=== PATIENT | female | born 1950 | race Caucasian/White ===

== ENCOUNTER 2016-10-27 12:36 | Outpatient (CLI) | payer MEDICARE, OTHER | END 2016-10-27 12:37 | disposition home or self-care (01) | DX: R07.81 Pleurodynia (principal) ==

== ENCOUNTER 2017-02-10 09:00 | Outpatient (CLI) | payer MEDICARE, OTHER ==
--- NOTE | 2017-02-10 11:16 | DEXA Report ---
DEXA SCAN: 02/10/2017 CLINICAL HISTORY: Bone disorder. TECHNIQUE: Dual energy x-ray absorptiometry (DXA) was performed on a [employer] system. Regions measured are the AP spine, femoral neck, and, if needed, forearm. COMPARISON: None. In accordance with the International Society for Clinical Densitometry (ISCD) guidelines, data from previous exams may be reanalyzed using current recommendations and techniques. This is done to allow a more accurate basis for comparison with the current study. FINDINGS: The data for the lumbar spine is as follows: REGION BMD (g/cm/cm) T-SCORE Z-SCORE L1 1.078 -0.4 0.0 L2 1.213 0.1 0.5 L3 1.035 -1.4 -0.9 L4 0.977 -1.9 -1.4 TOTAL 1.073 -0.9 -0.5 NOTE: All evaluable vertebrae are used for classification. The data for the hip is as follows: REGION BMD (g/cm/cm) T-SCORE Z-SCORE Neck 1.052 0.1 0.9 TOTAL 1.032 0.2 0.6 NOTE: The femoral neck or total proximal femur, whichever is lowest, is used for classification. IMPRESSION: THE WHO CLASSIFICATION BASED ON THE INTERNATIONAL REFERENCE STANDARD IS NORMAL. THE FRACTURE RISK IS NOT INCREASED. RECOMMENDATION: Patients with diagnosis of osteoporosis or osteopenia should have regular bone mineral density assessment. For those eligible for Medicare, routine testing is allowed once every 2 years. Testing frequency can be increased for patients who have rapidly progressing disease or for those who are receiving medical therapy to restore bone mass. COMMENT: World Health Organization (WHO) definitions for osteoporosis and osteopenia: NORMAL BMD: T-score at -1.0 or higher, fracture risk is low. OSTEOPENIA BMD: T-score between -1.0 and -2.5, fracture risk is increased. OSTEOPOROSIS BMD: T-score at -2.5 or lower, fracture risk high. National Osteoporosis Foundation recommends: 1. Obtain adequate dietary calcium (at least 1200 mg per day) and vitamin D (400 -800 international units per day). 2. Participate, as appropriate, in regular weightbearing and muscle- strengthening exercise. 3. Avoid tobacco use and reduce alcohol and caffeine intake. 4. For more detailed information see the website at www.NOF.org. MTDD
== END 2017-02-10 09:01 | disposition home or self-care (01) ==
LOC: DI 09:00
PROVIDERS: ATTEND Physician Assistant Medical
DX: M89.9 Disorder of bone, unspecified (principal)
CPT/HCPCS: 77080

== ENCOUNTER 2017-02-21 07:33 | Outpatient (CLI) | payer MEDICARE, OTHER ==
[2017-02-21 12:41] LABS: BASOPHILS % (AUTO) 0.6 %; EOSINOPHILS # (AUTO) 0.1 10^3/uL (0.0-0.7); EOSINOPHILS % (AUTO) 2.5 %; HCT - HEMATOCRIT 38.1 % (37.0-47.0); HGB - HEMOGLOBIN 12.9 g/dL (12.0-16.0); LYMPHOCYTES # (AUTO) 1.4 10^3/uL (1.5-3.5); LYMPHOCYTES % (AUTO) 27.1 %; MEAN CORPUSCULAR HEMOGLOBIN 30.1 pg (27.0-31.0); MEAN CORPUSCULAR VOLUME 88.5 fL (81.0-99.0); MEAN PLATELET VOLUME 8.8 fL (7.9-10.8); MONOCYTES # (AUTO) 0.4 10^3/uL (0.0-1.0); NEUTROPHILS # (AUTO) 3.2 10^3/uL (1.5-6.6); NEUTROPHILS % (AUTO) 61.8 %; RED CELL DISTRIBUTION WIDTH 14.7 % (12.0-15.0); UNCORRECTED WHITE BLOOD COUNT 5.1 x10^3/uL; WHITE BLOOD COUNT 5.1 x10^3/uL (4.8-10.8)
[2017-02-21 13:14] LABS: ALBUMIN/GLOBULIN RATIO 1.4 (1.0-2.2); BILIRUBIN,TOTAL 0.5 mg/dL (0.2-1.0); BUN - BLOOD UREA NITROGEN 28 mg/dL (6-20); CALCIUM 9.4 mg/dL (8.5-10.3); CARBON DIOXIDE - CO2 28 mmol/L (21-32); CHLORIDE 104 mmol/L (101-111); CHOL/HDL RATIO 2.4 (<4.4); CHOLESTEROL 168 mg/dL; GFR - MDRD 55 (>89); GLUCOSE 98 mg/dL (70-100); HDL CHOLESTEROL 71 mg/dL; LDL/HDL RATIO 0.9 (<4.4); POTASSIUM 4.3 mmol/L (3.5-5.0); SODIUM 141 mmol/L (135-145); TOTAL PROTEIN 7.6 g/dL (6.7-8.2); TRIGLYCERIDES 149 mg/dL; VLDL CHOLESTEROL 30 mg/dL
== END 2017-02-21 07:34 | disposition home or self-care (01) ==
LOC: LAB.WCP 07:33
PROVIDERS: ATTEND Physician Assistant Medical
DX: I10 Essential (primary) hypertension (principal)
CPT/HCPCS: 36415; 80053; 80061; 84443; 85025

== ENCOUNTER 2017-04-07 11:25 | Outpatient (CLI) | payer MEDICARE, OTHER ==
--- NOTE | 2017-04-10 16:51 | Mammography Report ---
DIGITAL SCREENING MAMMOGRAM: 04/07/2017 CLINICAL INDICATION: A 66-year-old with history of late childbearing, history of benign left breast b iopsy, for screening. COMPARISON: 02/2016, 02/2015, 01/2014, 01/2013, 12/2011, 10/2010, 10/2009, 08/2008, 08/2007. TECHNIQUE: Routine CC and MLO projections were obtained of the breasts. FINDINGS: The breasts demonstrate scattered fibroglandular densities bilaterally. Postbiopsy changes in the left breast are stable. Coarse and punctate, typically benign calcifications are present. Int ramammary lymph nodes are stable. No suspicious masses, clustered microcalcifications, or regions of architectural distortion are identified. IMPRESSION: BENIGN FINDINGS. RECOMMENDATION: ROUTINE ANNUAL SCREENING UNLESS OTHERWISE CLINICALLY INDICATED. BIRADS CATEGORY 2-BENIGN FINDINGS. STANDARD QUALIFYING STATEMENTS 1. This examination was reviewed with the aid of Computer-Aided Detection (CAD). 2. A negative or benign imaging report should not delay biopsy if clinically suspicious findings are present. Consider surgical consultation if warranted. More than 5% of cancers are not identified by i maging. 3. Dense breasts may obscure an underlying neoplasm. JOB #: [id number] EXT JOB #:[id number]
== END 2017-04-07 11:26 | disposition home or self-care (01) ==
LOC: DI.N 11:25
PROVIDERS: ATTEND Physician Assistant Medical
DX: Z12.31 Encounter for screening mammogram for malignant neoplasm of breast (principal)
CPT/HCPCS: 77067

== ENCOUNTER 2017-08-11 13:00 | Outpatient (CLI) | payer MEDICARE, OTHER | END 2017-08-11 13:01 | disposition home or self-care (01) | LOC: LAB.WCP 13:00 | PROVIDERS: ATTEND Family Medicine | DX: R35.0 Frequency of micturition (principal) | CPT/HCPCS: 87086 ==

== ENCOUNTER 2017-09-29 10:05 | Outpatient (CLI) | payer MEDICARE, OTHER ==
--- NOTE | 2017-09-29 15:32 | XRAY Report ---
DATE OF SERVICE: 09/29/2017 TWO VIEW RIGHT RIBS: 09/29/2017 CLINICAL INDICATION: Pain. FINDINGS: Oblique views of the right ribs were obtained, with a marker at the site of maximal tenderness. There is no evidence of a displaced rib fracture. No gross pneumothorax is seen. IMPRESSION: NO EVIDENCE OF A DISPLACED RIB FRACTURE. TD: 09/29/2017 16:30
== END 2017-09-29 10:06 | disposition home or self-care (01) ==
LOC: DI 10:05
PROVIDERS: ATTEND Physician Assistant Medical
DX: R07.81 Pleurodynia (principal)

== ENCOUNTER 2017-10-05 12:22 | Outpatient (CLI) | payer MEDICARE, OTHER ==
--- NOTE | 2017-10-05 18:59 | CT Report ---
DATE OF SERVICE: 10/05/2017 CT CHEST WITHOUT CONTRAST: 10/05/2017 CLINICAL INDICATION: Right rib pain. COMPARISON: 10/27/[address] images of the chest were obtained without contrast. In accordance with CT protocol optimization, one or more of the following dose reduction techniques were utilized for this exam: Automated exposure control, adjustment of mA and/or KV based on patient size, or use of iterative reconstructive technique. The heart and great vessels demonstrate atherosclerotic calcifications. No hilar or mediastinal lymphadenopathy is appreciated. The lungs are clear. Postoperative changes are seen at the right lung base and right posterolateral pleural surface, with a [place]-Everardo mesh in place. There has been partial resection of the 9th rib, stable. The diastasis between the 8th and 9th ribs appears stable, with stable lateral protrusion of the liver through the diastasis. No new rib fracture is identified. Limited evaluation of upper abdominal structures demonstrates normal adrenal glands. IMPRESSION: Stable postoperative changes in the right chest. No evidence of a new rib fracture. TD: 10/05/2017 19:58
== END 2017-10-05 12:23 | disposition home or self-care (01) ==
LOC: DI 12:22
PROVIDERS: ATTEND Physician Assistant Medical
DX: R07.81 Pleurodynia (principal)
CPT/HCPCS: 71250

== ENCOUNTER 2018-03-06 07:16 | Outpatient (CLI) | payer MEDICARE, OTHER ==
[2018-03-06 12:25] LABS: ALBUMIN 4.2 g/dL (3.2-5.5); ALBUMIN/GLOBULIN RATIO 1.3 (1.0-2.2); ALKALINE PHOSPHATASE 50 IU/L (42-121); ALT ALANINE AMINOTRANSFERASE 16 IU/L (10-60); AST ASPARTATE AMINOTRANSFERASE 22 IU/L (10-42); BILIRUBIN,TOTAL 0.8 mg/dL (0.2-1.0); BUN - BLOOD UREA NITROGEN 44 mg/dL (6-20); CALCIUM 9.7 mg/dL (8.5-10.3); CARBON DIOXIDE - CO2 29 mmol/L (21-32); CHLORIDE 101 mmol/L (101-111); CHOL/HDL RATIO 2.7 (<4.4); CHOLESTEROL 151 mg/dL; GFR - MDRD 55 (>89); GLUCOSE 86 mg/dL (70-100); HDL CHOLESTEROL 56 mg/dL; LDL CHOLESTEROL,CALCULATED 82 mg/dL; LDL/HDL RATIO 1.5 (<4.4); SODIUM 136 mmol/L (135-145); TOTAL PROTEIN 7.5 g/dL (6.7-8.2); VLDL CHOLESTEROL 13 mg/dL
[2018-03-06 12:34] LABS: BASOPHILS % (AUTO) 0.5 %; EOSINOPHILS # (AUTO) 0.1 10^3/uL (0.0-0.7); HGB - HEMOGLOBIN 13.3 g/dL (12.0-16.0); LYMPHOCYTES # (AUTO) 1.5 10^3/uL (1.5-3.5); LYMPHOCYTES % (AUTO) 25.2 %; MEAN CORPUSCULAR HEMOGLOBIN 31.1 pg (27.0-31.0); MEAN CORPUSCULAR HGB CONC 33.8 g/dL (32.0-36.0); MEAN CORPUSCULAR VOLUME 92.1 fL (81.0-99.0); MONOCYTES # (AUTO) 0.5 10^3/uL (0.0-1.0); MONOCYTES % (AUTO) 7.9 %; NEUTROPHILS # (AUTO) 3.8 10^3/uL (1.5-6.6); NEUTROPHILS % (AUTO) 64.4 %; PLT - PLATELET COUNT 207 10^3/uL (130-450); RED BLOOD COUNT 4.28 10^6/uL (4.20-5.40); RED CELL DISTRIBUTION WIDTH 14.1 % (12.0-15.0); THYROID STIMULATING HORMONE < 0.08 uIU/mL (0.34-5.60); WHITE BLOOD COUNT 5.9 x10^3/uL (4.8-10.8)
== END 2018-03-06 07:17 | disposition home or self-care (01) ==
LOC: LAB.WCP 07:16
PROVIDERS: ATTEND Physician Assistant Medical
DX: E78.5 Hyperlipidemia, unspecified (principal); E55.9 Vitamin D deficiency, unspecified; R53.83 Other fatigue; E03.9 Hypothyroidism, unspecified; J30.9 Allergic rhinitis, unspecified
CPT/HCPCS: 36415; 80053; 80061; 82306; 82607; 83721; 84443; 85025

== ENCOUNTER 2018-04-03 08:05 | Outpatient (CLI) | payer MEDICARE, OTHER ==
[2018-04-03 13:50] LABS: THYROID STIMULATING HORMONE < 0.08 uIU/mL (0.34-5.60)
[2018-04-03 14:45] LABS: FREE T4 (FREE THYROXINE) 1.68 ng/dL (0.58-1.64)
== END 2018-04-03 08:06 | disposition home or self-care (01) ==
LOC: LAB.WCP 08:05
PROVIDERS: ATTEND Physician Assistant Medical
DX: E03.9 Hypothyroidism, unspecified (principal)
CPT/HCPCS: 36415; 84439; 84443

== ENCOUNTER 2018-04-14 07:35 | Outpatient (CLI) | payer MEDICARE, OTHER ==
--- NOTE | 2018-04-15 15:16 | CT Report ---
Procedure Date: 04/14/2018 Accession Number: [id number] / [id number] Procedure: CT - Chest W/O CPT Code: FULL RESULT: EXAM: CT CHEST EXAM DATE: 04/14/2018 07:50 AM. CLINICAL HISTORY: RIB PAIN, RIGHT SIDED. COMPARISONS: CHEST W/O 10/05/2017 12:34 AM CHEST W/O 10/27/2016 12:57 AM. TECHNIQUE: Routine helical CT imaging was performed through the chest. IV contrast: None. Reconstructions: Coronal and sagittal. In accordance with CT protocol optimization, one or more of the following dose reduction techniques were utilized for this exam: automated exposure control, adjustment of mA and/or KV based on patient size, or use of iterative reconstructive technique. FINDINGS: Lungs/Pleura: There is stable scarring within the right lung base. Patient has undergone thoracotomy with pleural repair. There is a stable 0.4 cm pulmonary nodule within the left lower lobe (image 37 series 4). Stable 0.4 cm pulmonary nodule within the left lower lobe (image 39). No new or suspicious nodules are seen. Mediastinum: There is no cardiomegaly. There is calcification of the aortic valve. No enlarged axillary, supraclavicular, mediastinal, or hilar lymph nodes. Bones: The posterolateral ninth rib is absent. Sclerosis of the lateral right eighth rib and posterior right ninth rib likely corresponds to remote fractures. No acute bony abnormalities are seen. Visualized Abdomen: Unremarkable. Other: None. IMPRESSION: 1. No evidence of acute rib fracture. There are remote fractures of the right lateral eighth and right posterior ninth ribs. Patient has undergone partial right ninth rib resection with pleural mesh placement. 2. Stable scarring within the right lung base. 3. Stable pair of 0.4 cm pulmonary nodules within the left lower lobe. 4. No acute pulmonary process. 5. Mild cardiomegaly. There are calcifications of the aortic valve. RADIA
== END 2018-04-14 07:36 | disposition home or self-care (01) ==
LOC: DI 07:35
PROVIDERS: ATTEND Physician Assistant Medical
DX: R07.81 Pleurodynia (principal); R91.8 Other nonspecific abnormal finding of lung field; I51.7 Cardiomegaly; I70.0 Atherosclerosis of aorta
CPT/HCPCS: 71250

== ENCOUNTER 2018-04-19 09:11 | Outpatient (CLI) | payer MEDICARE, OTHER ==
--- NOTE | 2018-04-20 11:32 | Mammography Report ---
Procedure Date: 04/19/2018 Accession Number: [id number] / [id number] Procedure: MGN - Screening Mammo Dig Bilat CPT Code: FULL RESULT: EXAM: Screening Mammo Dig Bilat DATE: 04/19/2018 9:31 AM CLINICAL HISTORY: 67-year-old female with history of late childbearing and left breast biopsy with benign pathology. TECHNIQUE: Bilateral CC and MLO views were obtained. COMPARISON: 04/07/2017, 03/10/2016, 02/17/2015, 02/13/2014. FINDINGS: The breasts demonstrate scattered fibroglandular densities bilaterally. A typically benign stable intramammary lymph node is seen in the left breast. Postbiopsy changes in the left breast are again seen. No suspicious masses, clustered microcalcifications, or regions of architectural distortion are identified. IMPRESSION: Benign findings RECOMMENDATION: Routine annual screening unless otherwise clinically indicated. BIRADS CATEGORY 2: Benign findings STANDARD QUALIFYING STATEMENTS: 1. This examination was reviewed with the aid of Computer-Aided Detection (CAD). 2. A negative or benign imaging report should not delay biopsy if clinically suspicious findings are present. Consider surgical consultation if warrented. More than 5% of cancers are not identified by imaging. 3. Dense breasts may obscure an underlying neoplasm.
== END 2018-04-19 09:12 | disposition home or self-care (01) ==
LOC: DI.N 09:11
PROVIDERS: ATTEND Physician Assistant Medical
DX: Z12.31 Encounter for screening mammogram for malignant neoplasm of breast (principal)
CPT/HCPCS: 77067

== ENCOUNTER 2018-05-04 08:00 | Outpatient (CLI) | payer MEDICARE, OTHER ==
[2018-05-04 19:07] LABS: THYROID STIMULATING HORMONE 0.14 uIU/mL (0.34-5.60)
[2018-05-04 19:45] LABS: FREE T4 (FREE THYROXINE) 1.17 ng/dL (0.58-1.64)
== END 2018-05-04 08:01 | disposition home or self-care (01) ==
LOC: LAB.WCP 08:00
PROVIDERS: ATTEND Physician Assistant Medical
DX: E03.9 Hypothyroidism, unspecified (principal)
CPT/HCPCS: 36415; 84439; 84443

== ENCOUNTER 2019-06-04 08:00 | Outpatient (CLI) | payer MEDICARE, OTHER | END 2019-06-04 08:01 | disposition home or self-care (01) | LOC: LAB.R 08:00 | PROVIDERS: ATTEND Physician Assistant Medical | DX: L02.91 Cutaneous abscess, unspecified (principal) | CPT/HCPCS: 87070; 87205 ==

== ENCOUNTER 2019-06-06 14:32 | Outpatient (CLI) | payer MEDICARE, OTHER ==
--- NOTE | 2019-06-07 09:10 | DEXA Report ---
Reason: POSTMENOPAUSAL Procedure Date: 06/06/2019 Accession Number: [id number] / [id number] Procedure: DEX - Dexa Spine and/or Hip CPT Code: FULL RESULT: EXAM: Dexa Spine and/or Hip DATE: 06/06/2019 3:07 PM CLINICAL HISTORY: POSTMENOPAUSAL. On thyroid medicine. History of Alendronate use. TECHNIQUE: Dual energy x-ray absorptiometry (DXA) was performed on a [employer] System. Regions measured are the AP Spine, femoral neck, and if needed forearm. COMPARISON: 02/10/2017 In accordance with the International Society for Clinical Densitometry (ISCD) guidelines, data from previous exams may be reanalyzed using current recommendations and techniques. This is done to allow a more accurate basis for comparison with the current study. FINDINGS: The data for the lumbar spine is as follows: BMD (g/cm/cm) T-SCORE Z-SCORE REGION L1 1.062 -0.6 -0.1 L2 1.138 -0.5 0.0 L3 1.082 -1.0 -0.5 L4 0.949 -2.1 -1.6 TOTAL 1.055 -1.0 -0.6 NOTE: All evaluable vertebrae are used for classification The data for the hip is as follows: BMD (g/cm/cm) T-SCORE Z-SCORE REGION Neck 0.977 -0.4 0.4 TOTAL 0.970 -0.3 0.2 NOTE: The femoral neck or total proximal femur, whichever is lowest, is used for classification. DXA RESULTS SUMMARY: Spine SCAN DATE AGE BMD CHANGE VS CHANGE VS PREVIOUS PREVIOUS % 6/06[birth year]2019 [age] 1.055 -0.018 -1.7 02[birth year]10[birth year]2017 [age] 1[age]073 * Denotes significant change at the 95% confidence level. Denotes dissimilar scan types or analysis methods. DXA RESULTS SUMMARY: Hip SCAN DATE AGE BMD CHANGE VS CHANGE VS PREVIOUS PREVIOUS % 6[birth year]06[birth year]2019 [age] 0.970 -0.062* -6.0* [birth year][age]10[birth year]2017 [age] 1.032 * Denotes significant change at the 95% confidence level. Denotes dissimilar scan types or analysis methods. IMPRESSION: THE WHO CLASSIFICATION BASED ON THE INTERNATIONAL REFERENCE STANDARD IS NORMAL. THE FRACTURE RISK IS NOT INCREASED. THERE HAS BEEN A STATISTICALLY SIGNIFICANT 6% DECREASE IN LEFT HIP TOTAL BONE MINERAL DENSITY SINCE 02/10/2017. RECOMMENDATION: Patients with diagnosis of osteoporosis or osteopenia should have regular bone mineral density assessment. For those eligible for Medicare, routine testing is allowed once every 2 years. Testing frequency can be increased for patients who have rapidly progressing disease or for those who are receiving medical therapy to restore bone mass. COMMENT: World Health Organization (WHO) definitions for osteoporosis and osteopenia: NORMAL BMD: T-score at -1.0 or higher, fracture risk is low OSTEOPENIA BMD: T-score between -1.0 and -2.5, fracture risk is increased. OSTEOPOROSIS BMD: T-score at -2.5 or lower, fracture risk is high. National Osteoporosis Foundation recommends: 1. Obtain adequate dietary calcium (at least 1200 mg per day) and vitamin D (400-800 international units per day). 2. Participate, as appropriate, in regular weightbearing and muscle-strengthening exercise. 3. Avoid tobacco use and reduce alcohol and caffeine intake. 4. For more detailed information see the website at www.NOF.org.
== END 2019-06-06 14:33 | disposition home or self-care (01) ==
LOC: DI 14:32
PROVIDERS: ATTEND Physician Assistant Medical
DX: Z78.0 Asymptomatic menopausal state (principal)
CPT/HCPCS: 77080

== ENCOUNTER 2019-06-06 14:33 | Outpatient (CLI) | payer MEDICARE, OTHER ==
--- NOTE | 2019-06-07 09:57 | Mammography Report ---
Reason: ROUTINE MAMMO Procedure Date: 06/06/2019 Accession Number: [id number] / [id number] Procedure: SANJANA - Screening Mammo w/Derrick CPT Code: FULL RESULT: EXAM: Screening Mammo w/Derrick DATE: 06/06/2019 3:27 PM CLINICAL HISTORY: Routine screening. History of benign left breast biopsy. TECHNIQUE: (B) - Bilateral CC and MLO views were obtained. COMPARISON: 04/19/2018, 04/07/2017, 03/10/2016 and 02/17/15 PARENCHYMAL PATTERN: (F) - The breasts demonstrate diffuse fatty replacement bilaterally. FINDINGS: No significant interval change. There are no suspicious masses, calcifications, or areas of distortion. IMPRESSION: Negative examination. BI-RADS category 1. RECOMMENDATION: (ANNUAL) - Recommend routine annual screening mammography. BI-RADS CATEGORY: (1) - Negative. STANDARD QUALIFYING STATEMENTS: 1. This examination was not reviewed with the aid of Computer-Aided Detection (CAD). 2. A negative or benign imaging report should not preclude biopsy if clinically suspicious findings are present. 3. Dense breasts may obscure an underlying neoplasm. 4. This examination was reviewed with the aid of 3D breast imaging (tomosynthesis).
== END 2019-06-06 14:34 | disposition home or self-care (01) ==
LOC: DI 14:33
DX: Z12.31 Encounter for screening mammogram for malignant neoplasm of breast (principal)
CPT/HCPCS: 77063; 77067

== ENCOUNTER 2019-07-22 07:00 | Outpatient (CLI) | payer MEDICARE, OTHER ==
[2019-07-22 13:46] LABS: BASOPHILS % (AUTO) 0.6 %; EOSINOPHILS # (AUTO) 0.1 10^3/uL (0.0-0.7); EOSINOPHILS % (AUTO) 2.6 %; HGB - HEMOGLOBIN 13.2 g/dL (12.0-16.0); LYMPHOCYTES # (AUTO) 1.5 10^3/uL (1.5-3.5); LYMPHOCYTES % (AUTO) 28.3 %; MEAN CORPUSCULAR HEMOGLOBIN 29.2 pg (27.0-31.0); MEAN CORPUSCULAR HGB CONC 31.7 g/dL (32.0-36.0); MEAN CORPUSCULAR VOLUME 92.3 fL (81.0-99.0); MEAN PLATELET VOLUME 10.7 fL (7.9-10.8); MONOCYTES # (AUTO) 0.4 10^3/uL (0.0-1.0); MONOCYTES % (AUTO) 7.7 %; NEUTROPHILS # (AUTO) 3.2 10^3/uL (1.5-6.6); NEUTROPHILS % (AUTO) 60.4 %; PLT - PLATELET COUNT 205 10^3/uL (130-450); RED BLOOD COUNT 4.52 10^6/uL (4.20-5.40); RED CELL DISTRIBUTION WIDTH 14.4 % (12.0-15.0); WHITE BLOOD COUNT 5.3 x10^3/uL (4.8-10.8)
[2019-07-22 13:58] LABS: ALBUMIN 4.1 g/dL (3.2-5.5); ALBUMIN/GLOBULIN RATIO 1.2 (1.0-2.2); ALKALINE PHOSPHATASE 46 IU/L (42-121); ALT ALANINE AMINOTRANSFERASE 16 IU/L (10-60); AST ASPARTATE AMINOTRANSFERASE 24 IU/L (10-42); BILIRUBIN,TOTAL 0.8 mg/dL (0.2-1.0); BUN - BLOOD UREA NITROGEN 28 mg/dL (6-20); CALCIUM 9.3 mg/dL (8.5-10.3); CARBON DIOXIDE - CO2 29 mmol/L (21-32); CHLORIDE 104 mmol/L (101-111); CHOL/HDL RATIO 2.4 (<4.4); CHOLESTEROL 158 mg/dL; CREATININE 0.9 mg/dL (0.4-1.0); GFR - MDRD 62 (>89); GLUCOSE 87 mg/dL (70-100); HDL CHOLESTEROL 67 mg/dL; LDL CHOLESTEROL,CALCULATED 79 mg/dL; LDL/HDL RATIO 1.2 (<4.4); SODIUM 141 mmol/L (135-145); TOTAL PROTEIN 7.5 g/dL (6.7-8.2); VLDL CHOLESTEROL 12 mg/dL
== END 2019-07-22 23:59 | disposition home or self-care (01) ==
LOC: LAB.WCP 07:00
PROVIDERS: ATTEND Physician Assistant Medical
DX: E78.5 Hyperlipidemia, unspecified (principal); E03.9 Hypothyroidism, unspecified; J30.9 Allergic rhinitis, unspecified
CPT/HCPCS: 36415; 80053; 80061; 83721; 84443; 85025

== ENCOUNTER 2019-08-09 11:09 | Outpatient (CLI) | payer MEDICARE, OTHER | END 2019-08-09 11:10 | disposition critical access hospital (66) | LOC: EMS 11:09 | PROVIDERS: ATTEND Surgery | DX: S09.90XA Unspecified injury of head, initial encounter (principal); W01.0XXA Fall on same level from slipping, tripping and stumbling without subsequent striking against object, initial encounter; Y93.01 Activity, walking, marching and hiking; Y92.481 Parking lot as the place of occurrence of the external cause | CPT/HCPCS: A0425; A0429 ==

== ENCOUNTER 2019-08-09 11:32 | Emergency (ER) | payer MEDICARE, OTHER ==
[2019-08-09] MEDS ORDERED: ACETAMINOPHEN 325 MG TABLET PO STA (12:08)
--- NOTE | 2019-08-09 12:21 | ED Physician Documentation ---
History of Present Illness - Stated complaint Stated Complaint: GLF - Chief complaint Chief Complaint: Trauma Hd/Nk - Additonal information Additional information: This is a 68-year-old female presents with head trauma. Patient was walking on a gravel surface and some gravel caused her to slip fall backwards and hit the back of her head. She landed on her bottom first and then hit her head, denies loss of consciousness. She stayed on the ground afterwards because she wanted to be cautious. An ambulance was called and they applied a c-collar to her and brought her here. She denies any neck pain, no numbness, weakness, or tingling. She does have a mild headache which is localized over. No confusion, she is not on blood thinners. She now feels well. Review of Systems Skin: reports: Abrasion (s) Neurologic: reports: Head injury PD PAST MEDICAL HISTORY - Past Medical History Endocrine/Autoimmune: None - Past Surgical History Past Surgical History: Yes - Present Medications Home Medications: Ambulatory Orders Medication Instructions Recorded Confirmed ALPRAZolam [Xanax] 0.25 mg PO ONCE 06/25/16 06/25/16 Alendronate [Fosamax] 70 mg PO Q7D 06/25/16 06/25/16 Citalopram [CeleXA] 10 mg PO DAILY 06/25/16 06/25/16 Felodipine [Felodipine ER] 10 mg PO 06/25/16 Levothyroxine [Synthroid] 125 mcg PO QDAC 06/25/16 06/25/16 Losartan [Cozaar] 50 mg PO BID 06/25/16 06/25/16 Pregabalin [Lyrica] 25 mg PO BID 06/25/16 06/25/16 Simvastatin 20 mg PO 06/25/16 oxyCODONE [Roxicodone] 5 mg PO Q4-6H 06/25/16 06/25/16 - Allergies Allergies/Adverse Reactions: Allergies Allergy/AdvReac Type Severity Reaction Status Date / Time Sulfa (Sulfonamide Allergy Unknown Verified 08/09/19 11:35 Antibiotics) - Social History Does the pt smoke?: No Smoking Status: Never smoker Does the pt drink ETOH?: No Does the pt have substance abuse?: No - Immunizations Immunizations are current?: Yes PD ED PE NORMAL - Vitals Vital signs reviewed: Yes - General General: Alert and oriented X 3, No acute distress - HEENT HEENT: Other (There is a 3 cm x 2.5 cm small hematoma on the posterior right scalp with an overlying slight abrasion but no laceration or skin deficit that requires repair. Remainder of her head is atraumatic. There are no step-offs. No raccoon eyes, negative campbell sign.) - Neck Neck: Supple, no meningeal sign, No bony TTP, Other (No midline tenderness, painless range of motion with lateral rotation, flexion extension. No pain with axial loading. No step-offs or deformities) - Cardiac Cardiac: RRR - Respiratory Respiratory: No respiratory distress - Abdomen Abdomen: Soft, Non tender, Non distended - Derm Derm: Warm and dry - Extremities Extremities: No deformity - Neuro Neuro: Alert and oriented X 3, pit shoveler 2-12 intact, No motor deficit, No sensory deficit, Normal speech - Psych Psych: Normal mood, Normal affect Results - Vitals Vitals: Vital Signs - 24 hr 08/09/19 11:35 Temperature 36.8 C Heart Rate 56 L Respiratory 15 Rate Blood Pressure 174/78 H O2 Saturation 96 Oxygen O2 Source Room air - Rads (name of study) CT head Wo Radiology: Other (No acute intracranial abnormality) PD MEDICAL DECISION MAKING - ED course Complexity details: considered differential (Hematoma, concussion, mild head injury, fracture, Intracranial hemorrhage) ED course: Patient presents After a mechanical ground-level fall. Her mechanism is fairly mild, she fell on her bottom and then hit her head, she did not lose consciousness, and she is not on blood thinners, and her neurologic exam is normal at this time. She has no neck pain, no cervical spine tenderness, full active range of motion without pain, her c-collar was cleared. Given her age I discussed with her the options of careful watching versus CT, she elected for the CT scan of her head. CT was performed and showed no acute intracranial abnormality. I discussed these results as well as supportive care for potential concussion, and follow-up with her primary care provider. I also discussed strict return precautions. Patient agreed and was discharged home in the care of her family. Departure - Departure Disposition: 01 Home, Self Care Clinical Impression: Head injury Qualifiers: Encounter type: initial encounter Qualified Code(s): S09.90XA - Unspecified injury of head, initial encounter Condition: Good Instructions: ED Head Injury Closed Follow-Up: Your,PCP [Other] (For follow up on head injury with any Persistent symptoms) Comments: You were seen today because of a head injury. Your CT scan does not show signs of bleeding or fractures. You may have suffered a concussion, you may take Tylenol and ibuprofen for headache. If you are having symptoms such as persistent headache, difficulty sleeping, difficulty focusing and these persist longer than a few days you should follow-up with your primary care provider. If you develop worsening symptoms such as severe headache, confusion, or other concerning symptoms return to the emergency department.
--- NOTE | 2019-08-09 13:02 | CT Report ---
Reason: fall, posterior head trauma Procedure Date: 08/09/2019 Accession Number: [id number] / [id number] Procedure: CT - HEAD WO CPT Code: Final Report FULL RESULT: EXAM: CT HEAD EXAM DATE: 08/09/2019 12:34 PM. CLINICAL HISTORY: Fall, posterior head trauma. COMPARISON: None. TECHNIQUE: Multiaxial CT images were obtained from the foramen magnum to the vertex. Reformats: Sagittal and coronal. IV contrast: None. In accordance with CT protocol optimization, one or more of the following dose reduction techniques were utilized for this exam: automated exposure control, adjustment of mA and/or KV based on patient size, or use of iterative reconstructive technique. FINDINGS: Parenchyma: No intraparenchymal hemorrhage. No evidence of mass, midline shift, or CT findings of infarction. Palacios-white differentiation is distinct. Extraaxial Spaces: Normal for age. No subdural or epidural collections identified. Ventricles: Normal in size and position. Sinuses and Orbits: Imaged paranasal sinuses, orbits, and mastoids show no significant abnormality. Bones: No evidence of fracture or calvarial defect. Other: None. IMPRESSION: No acute intracranial abnormality. RADIA
[2019-08-09 13:17] VITALS: BP 163/78
== END 2019-08-09 13:21 | disposition home or self-care (01) ==
LOC: EDUNIT# → ED 11:32
DX: S09.90XA Unspecified injury of head, initial encounter (principal); S00.01XA Abrasion of scalp, initial encounter; S00.03XA Contusion of scalp, initial encounter; W01.0XXA Fall on same level from slipping, tripping and stumbling without subsequent striking against object, initial encounter; Y93.01 Activity, walking, marching and hiking
CPT/HCPCS: 70450; 99282; 99284; A9270

== ENCOUNTER 2019-11-01 15:51 | Outpatient (CLI) | payer MEDICARE, OTHER | END 2019-11-01 15:52 | disposition home or self-care (01) | LOC: LAB 15:51 | PROVIDERS: ATTEND Otolaryngology | DX: R49.0 Dysphonia (principal) | CPT/HCPCS: 36415; 82565; 84520 ==

== ENCOUNTER 2019-11-25 12:50 | Outpatient (CLI) | payer MEDICARE, OTHER ==
--- NOTE | 2019-11-26 12:09 | MRI Report ---
Reason: RT PAIN, EDEMA Procedure Date: 11/25/2019 Accession Number: [id number] / [id number] Procedure: MRI - Ankle RT W/O CPT Code: Final Report FULL RESULT: EXAM: RIGHT ANKLE/HINDFOOT MRI WITHOUT CONTRAST EXAM DATE: 11/25/2019 02:11 PM. CLINICAL HISTORY: Lateral right ankle pain. Previous ankle surgery 5 years ago. COMPARISON: ANKLE 3 VIEW RT 07/09/2014 9:54 AM RT FOOT 02/28/2009 10:39 AM RT ANKLE 11/21/2009 10:54 AM. TECHNIQUE: Multiplanar, multisequence T1-weighted and fluid-sensitive sequences of the ankle/hindfoot without contrast. Other: None. FINDINGS: Bones and articular cartilage: Slight residual deformity and postoperative changes at the medial malleolus and tibial plafond from previous injury and surgery. Small enthesophytes at the lateral malleoli. Subchondral marrow edema at the anterolateral aspect of the tibial plafond which is unchanged. Grade III-IV chondromalacia at the anterolateral aspect of the tibiotalar joint which is unchanged. Small plantar calcaneal enthesophytes. Ligaments: The anterior and posterior tibiofibular, anterior and posterior talofibular, and calcaneofibular ligaments are intact. The deep and superficial deltoid and spring ligaments are intact. Anterior Tendons: The tibialis anterior, extensor hallucis longus, and extensor digitorum longus tendons are unremarkable. Medial Tendons: The tibialis posterior, flexor digitorum longus, and flexor hallucis longus tendons are unremarkable. Lateral Tendons: There is peroneus longus tendinosis, and just distal to the lateral malleolus. The peroneus brevis tendon is unremarkable. Achilles Tendon: There is Achilles tendinosis. No tear. Musculature: No edema or fatty atrophy. Other: No effusions. The contents of the sinus tarsi and tarsal tunnel are unremarkable. No plantar fasciitis. Mild subcutaneous edema at the lateral aspect of the ankle. IMPRESSION: 1. . Tibiotalar joint osteoarthritis. No change. 2. Peroneus longus tendinosis. 3. Chronic Achilles tendinosis. 4. Mild subcutaneous edema at the lateral aspect of the ankle. RADIA
== END 2019-11-25 12:51 | disposition home or self-care (01) ==
LOC: DI 12:50
PROVIDERS: ATTEND Podiatrist
DX: M19.071 Primary osteoarthritis, right ankle and foot (principal); M67.971 Unspecified disorder of synovium and tendon, right ankle and foot; R60.0 Localized edema

== ENCOUNTER 2020-07-02 08:20 | Outpatient (CLI) | payer MEDICARE, OTHER ==
--- NOTE | 2020-07-03 16:00 | Mammography Report ---
BILATERAL DIGITAL SCREENING MAMMOGRAM 3D/2D: 07/02/2020 CLINICAL: Routine screening. Comparison is made to exams dated: 06/06/2019 mammogram, 04/19/2018 mammogram, 04/07/2017 mammogram, 02/17 mammogram, 02/17/2015 mammogram, and 02/12/2014 mammogram - [facility]. There are scattered fibroglandular elements in both breasts. No significant masses, calcifications, or other findings are seen in either breast. There has been no significant interval change. IMPRESSION: NEGATIVE There is no mammographic evidence of malignancy. A 1 year screening mammogram is recommended. This exam was interpreted at Station ID: [id number]. NOTE: For mammograms, a report in lay terms will be sent to the patient. Approximately 15% of breast malignancies will not be visualized mammographically. In the management of a palpable breast mass, a negative mammogram must not discourage biopsy of a clinically suspicious lesion. Electronically Signed By: [place] christianson/sharad:07/02/2020 13:22:13 ACR BI-RADS Category 1: Negative [id number] PARENCHYMAL PATTERN: (A) - The breast(s) demonstrate(s) scattered fibroglandular densities. BI-RADS CATEGORY: (1) - 1 RECOMMENDATION: (ANNUAL) - Recommend routine annual screening mammography. [id number] 1 year screening LATERALITY: (B)
== END 2020-07-02 08:21 | disposition home or self-care (01) ==
LOC: DI.N 08:20
DX: Z12.31 Encounter for screening mammogram for malignant neoplasm of breast (principal)
CPT/HCPCS: 77063; 77067

== ENCOUNTER 2020-07-08 09:02 | Outpatient (CLI) | payer MEDICARE, OTHER ==
[2020-07-08 11:39] LABS: BASOPHILS % (AUTO) 0.7 %; EOSINOPHILS # (AUTO) 0.1 10^3/uL (0.0-0.7); EOSINOPHILS % (AUTO) 2.3 %; HGB - HEMOGLOBIN 13.4 g/dL (12.0-16.0); LYMPHOCYTES # (AUTO) 1.6 10^3/uL (1.5-3.5); LYMPHOCYTES % (AUTO) 26.4 %; MEAN CORPUSCULAR HEMOGLOBIN 30.2 pg (27.0-31.0); MEAN CORPUSCULAR HGB CONC 32.4 g/dL (32.0-36.0); MEAN CORPUSCULAR VOLUME 93.2 fL (81.0-99.0); MEAN PLATELET VOLUME 10.9 fL (7.9-10.8); MONOCYTES # (AUTO) 0.4 10^3/uL (0.0-1.0); MONOCYTES % (AUTO) 7.2 %; NEUTROPHILS # (AUTO) 3.9 10^3/uL (1.5-6.6); NEUTROPHILS % (AUTO) 63.1 %; PLT - PLATELET COUNT 206 10^3/uL (130-450); RED BLOOD COUNT 4.43 10^6/uL (4.20-5.40); RED CELL DISTRIBUTION WIDTH 14.1 % (12.0-15.0); WHITE BLOOD COUNT 6.1 x10^3/uL (4.8-10.8)
[2020-07-08 12:19] LABS: ALBUMIN 4.3 g/dL (3.2-5.5); ALBUMIN/GLOBULIN RATIO 1.3 (1.0-2.2); ALKALINE PHOSPHATASE 51 IU/L (42-121); ALT ALANINE AMINOTRANSFERASE 17 IU/L (10-60); AST ASPARTATE AMINOTRANSFERASE 25 IU/L (10-42); BILIRUBIN,TOTAL 0.7 mg/dL (0.2-1.0); BUN - BLOOD UREA NITROGEN 19 mg/dL (6-20); CALCIUM 9.5 mg/dL (8.5-10.3); CARBON DIOXIDE - CO2 27 mmol/L (21-32); CHLORIDE 106 mmol/L (101-111); CHOL/HDL RATIO 2.4 (<4.4); CHOLESTEROL 172 mg/dL; CREATININE 0.9 mg/dL (0.4-1.0); GLUCOSE 93 mg/dL (70-100); HDL CHOLESTEROL 71 mg/dL; LDL CHOLESTEROL,CALCULATED 87 mg/dL; LDL/HDL RATIO 1.2 (<4.4); SODIUM 142 mmol/L (135-145); TOTAL PROTEIN 7.5 g/dL (6.7-8.2); VLDL CHOLESTEROL 14 mg/dL
== END 2020-07-08 23:59 | disposition home or self-care (01) ==
LOC: LAB.WCP 09:02
PROVIDERS: ATTEND Physician Assistant Medical
DX: I10 Essential (primary) hypertension (principal); E78.5 Hyperlipidemia, unspecified; E55.9 Vitamin D deficiency, unspecified; E03.9 Hypothyroidism, unspecified; F32.9 Major depressive disorder, single episode, unspecified
CPT/HCPCS: 36415; 80053; 80061; 82306; 82607; 83721; 84443; 85025

== ENCOUNTER 2021-01-01 07:00 | Outpatient (CLI) | payer MEDICARE, OTHER | END 2021-01-01 23:59 | disposition home or self-care (01) | LOC: COV 07:00 | PROVIDERS: ATTEND Specialist | DX: Z01.812 Encounter for preprocedural laboratory examination (principal); Z20.822 Contact with and (suspected) exposure to COVID-19 ==

== ENCOUNTER 2021-02-03 08:00 | Outpatient (CLI) | payer MEDICARE, OTHER ==
[2021-02-03 12:06] LABS: BASOPHILS % (AUTO) 0.5 %; EOSINOPHILS # (AUTO) 0.3 10^3/uL (0.0-0.7); EOSINOPHILS % (AUTO) 5.1 %; HCT - HEMATOCRIT 41.7 % (37.0-47.0); HGB - HEMOGLOBIN 13.6 g/dL (12.0-16.0); LYMPHOCYTES # (AUTO) 1.4 10^3/uL (1.5-3.5); LYMPHOCYTES % (AUTO) 22.8 %; MEAN CORPUSCULAR HEMOGLOBIN 30.4 pg (27.0-31.0); MEAN CORPUSCULAR HGB CONC 32.6 g/dL (32.0-36.0); MEAN CORPUSCULAR VOLUME 93.3 fL (81.0-99.0); MEAN PLATELET VOLUME 9.9 fL (7.9-10.8); MONOCYTES # (AUTO) 0.5 10^3/uL (0.0-1.0); NEUTROPHILS % (AUTO) 63.3 %; PLT - PLATELET COUNT 224 10^3/uL (130-450); RED BLOOD COUNT 4.47 10^6/uL (4.20-5.40); RED CELL DISTRIBUTION WIDTH 13.8 % (12.0-15.0); WHITE BLOOD COUNT 6.3 x10^3/uL (4.8-10.8)
[2021-02-03 12:46] LABS: ALBUMIN 4.5 g/dL (3.2-5.5); ALBUMIN/GLOBULIN RATIO 1.6 (1.0-2.2); BILIRUBIN,TOTAL 0.9 mg/dL (0.2-1.0); CALCIUM 9.4 mg/dL (8.5-10.3); CREATININE 0.8 mg/dL (0.4-1.0); TOTAL PROTEIN 7.4 g/dL (6.7-8.2)
[2021-02-03 12:54] LABS: THYROID STIMULATING HORMONE 2.97 uIU/mL (0.34-5.60)
== END 2021-02-03 23:59 | disposition home or self-care (01) ==
LOC: LAB.WCP 08:00
PROVIDERS: ATTEND Physician Assistant Medical
DX: E03.9 Hypothyroidism, unspecified (principal); R06.09 Other forms of dyspnea
CPT/HCPCS: 36415; 80053; 83880; 84443; 85025; 85379

== ENCOUNTER 2021-02-03 09:02 | Outpatient (CLI) | payer MEDICARE, OTHER ==
--- NOTE | 2021-02-03 16:43 | XRAY Report ---
PROCEDURE: Chest 2 View X-Ray INDICATIONS: DYSPNEA ON EXERTION TECHNIQUE: 2 view(s) of the chest. COMPARISON: July 24, 2018. FINDINGS: Surgical changes and devices: Cystectomy clips. Lungs and pleura: Small right-sided pleural effusion. Increased desiccation of the right lung base wh ich could represent atelectasis, aspiration or pneumonia. Mediastinum: Mediastinal contours are normal. Heart size is normal. Bones and chest wall: No suspicious bony abnormalities. Soft tissues appear unremarkable. IMPRESSION: 1. Small right-sided pleural effusion. 2. Right basilar atelectasis, aspiration or pneumonia. Reviewed by: Jodi Corrales MD, PhD on 02/03/2021 4:41 PM PDT Approved by: Jodi Corrales MD, PhD on 02/03/2021 4:41 PM PDT Station ID: [id number]
== END 2021-02-03 09:03 | disposition home or self-care (01) ==
LOC: DI.N 09:02
PROVIDERS: ATTEND Physician Assistant Medical
DX: J90 Pleural effusion, not elsewhere classified (principal); R91.8 Other nonspecific abnormal finding of lung field; E03.9 Hypothyroidism, unspecified; R06.09 Other forms of dyspnea
CPT/HCPCS: 36415; 80053; 83880; 84443; 85025; 85379

== ENCOUNTER 2021-02-28 15:10 | Outpatient (CLI) | payer MEDICARE, OTHER ==
[2021-02-28] MEDS ORDERED: IOVERSOL 320 100 ML VIAL IVP ONE (16:47)
--- NOTE | 2021-03-11 16:33 | XRAY Report ---
PROCEDURE: Chest 2 View X-Ray INDICATIONS: DYSPNEA ON EXERTION TECHNIQUE: 2 view(s) of the chest. COMPARISON: 02/02/2021, 07/24/2018, 04/08/2019. Correlation is made with the accompanying chest CT, 02/16. FINDINGS: Surgical changes and devices: Cholecystectomy clips are seen. Postoperative change of the right in ferolateral chest wall posteriorly is better seen on the accompanying CT examination. Lungs and pleura: No pleural effusions or pneumothorax. Lungs are clear. Mediastinum: Mediastinal contours are normal. Heart size is mildly enlarged. Bones and chest wall: No suspicious bony abnormalities. Age-appropriate degenerative changes are see n. Soft tissues appear unremarkable. IMPRESSION: Mild cardiomegaly. Clear lungs. Postoperative and degenerative changes are seen. Reviewed by: Adrian Romeo MD on 02/28/2021 6:02 PM TORRES Approved by: Adrian Romeo MD on 02/28/2021 6:02 PM TORRES Station ID: [id number]
== END 2021-02-28 15:11 | disposition home or self-care (01) ==
LOC: DI.N 15:10
PROVIDERS: ATTEND Physician Assistant Medical
DX: I51.7 Cardiomegaly (principal)

== ENCOUNTER 2021-02-28 16:14 | Emergency (ER) | payer MEDICARE, OTHER ==
--- OUTSIDE RECORDS SUMMARY | 2021-02-28 16:17 | EXTERNAL MEDICAL SUMMARY RPT | Continuity of Care Document ---
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
--- OUTSIDE RECORDS SUMMARY | 2021-02-28 16:21 | EXTERNAL MEDICAL SUMMARY RPT | Continuity of Care Document ---
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
--- NOTE | 2021-02-28 16:28 | ED Physician Documentation ---
History of Present Illness - Stated complaint Stated Complaint: SOA - Chief complaint Chief Complaint: Resp - History obtained from History obtained from: Patient - History of Present Illness Timing: Today Pain level max: 0 Pain level now: 0 - Additonal information Additional information: Patient is a 70-year-old female who presents to the emergency department with ongoing dyspnea for the past 6 weeks since having a thyroplasty for a paralyzed vocal cord about 6 to 8 weeks ago. She was seen by her doctor a month ago, had an x-ray and had a repeat x-ray today. The physician at the urgent care called her after the x-ray and told her to come to the emergency department. Patient states her symptoms have been stable for the past several weeks. Worse with exertion, better with rest. Review of Systems Ten Systems: 10 systems reviewed and negative Constitutional: denies: Fever, Chills Nose: denies: Rhinorrhea / runny nose, Congestion Throat: denies: Sore throat Cardiac: denies: Chest pain / pressure, Palpitations Respiratory: reports: Dyspnea. denies: Cough, Hemoptysis, Wheezing GI: denies: Vomiting, Diarrhea : denies: Dysuria, Frequency, Hesitancy Musculoskeletal: denies: Neck pain, Back pain Neurologic: denies: Headache PD PAST MEDICAL HISTORY - Past Medical History Past Medical History: Yes Cardiovascular: Hypertension, High cholesterol Endocrine/Autoimmune: HyPOthyroidism Psych: Anxiety - Past Surgical History Past Surgical History: Yes Other past surgical history: thyroplasty - Present Medications Home Medications: Ambulatory Orders Medication Instructions Recorded Confirmed ALPRAZolam [Xanax] 0.5 mg PO ONCE PRN 06/25/16 02/28/21 Citalopram [CeleXA] 10 mg PO DAILY 06/25/16 02/28/21 Levothyroxine [Synthroid] 125 mcg PO QDAC 06/25/16 02/28/21 Losartan [Cozaar] 50 mg PO BID 06/25/16 02/28/21 Simvastatin 20 mg PO DAILY 06/25/16 02/28/21 - Allergies Allergies/Adverse Reactions: Allergies Allergy/AdvReac Type Severity Reaction Status Date / Time Sulfa (Sulfonamide Allergy Unknown Verified 02/28/21 16:24 Antibiotics) - Social History Does the pt smoke?: No Smoking Status: Never smoker Does the pt drink ETOH?: No Does the pt have substance abuse?: No - Immunizations Immunizations are current?: Yes PD ED PE NORMAL - Vitals Vital signs reviewed: Yes - General General: Alert and oriented X 3, No acute distress - HEENT HEENT: Moist mucous membranes - Neck Neck: Supple, no meningeal sign - Cardiac Cardiac: RRR, Strong equal pulses - Respiratory Respiratory: No respiratory distress, Clear bilaterally - Abdomen Abdomen: Soft, Non tender, Non distended - Back Back: No CVA TTP, No spinal TTP - Derm Derm: Warm and dry - Extremities Extremities: No calf tenderness / cord - Neuro Neuro: Alert and oriented X 3 - Psych Psych: Normal mood, Normal affect Results - Vitals Vitals: Vital Signs - 24 hr 02/28/21 02/28/21 16:17 16:46 Temperature 36.7 C Heart Rate 64 57 L Respiratory 19 17 Rate Blood Pressure 150/89 H 100/67 O2 Saturation 91 L 95 Oxygen O2 Source Room air - EKG (time done) 1650 Rate: Rate (enter#) - Labs Labs: Laboratory Tests 02/28/21 02/28/21 02/28/21 16:31 16:31 16:31 WBC 7.6 RBC 4.34 Hgb 13.4 Hct 40.8 MCV 94.0 MCH 30.9 MCHC 32.8 RDW 13.9 Plt Count 217 MPV 9.6 Neut # (Auto) 4.7 Lymph # (Auto) 1.9 [place] # (Auto) 0.7 Eos # (Auto) 0.2 Baso # (Auto) 0.0 Absolute Nucleated RBC 0.00 Nucleated RBC % 0.0 Sodium 144 Potassium 4.1 Chloride 105 Carbon Dioxide 30 Anion Gap 9.0 BUN 19 Creatinine 0.8 Estimated GFR (MDRD) 71 L Glucose 99 Calcium 9.5 Total Bilirubin 0.3 AST 21 ALT 16 Alkaline Phosphatase 56 Troponin I High Sens 3.7 B-Natriuretic Peptide Total Protein 7.4 Albumin 4.4 Globulin 3.0 Albumin/Globulin Ratio 1.5 Lipase 57 H 02/28/21 16:31 WBC RBC Hgb Hct MCV MCH MCHC RDW Plt Count MPV Neut # (Auto) Lymph # (Auto) [place] # (Auto) Eos # (Auto) Baso # (Auto) Absolute Nucleated RBC Nucleated RBC % Sodium Potassium Chloride Carbon Dioxide Anion Gap BUN Creatinine Estimated GFR (MDRD) Glucose Calcium Total Bilirubin AST ALT Alkaline Phosphatase Troponin I High Sens B-Natriuretic Peptide 120 H Total Protein Albumin Globulin Albumin/Globulin Ratio Lipase - Rads (name of study) CT angio chest Radiology: Prelim report reviewed, EMP read contemporaneously, See rad report PD MEDICAL DECISION MAKING - ED course Complexity details: reviewed results, re-evaluated patient, considered differential, d/w patient ED course: Female with dyspnea for the past 6 weeks status post thyroplasty. Chest x-ray appeared unchanged to me from her prior chest x-ray. CT pulmonary angiogram performed to rule out PE. Patient was also given a DuoNeb treatment. Patient will be signed out to the oncoming emergency department physician for follow-up on the CT pulmonary angiogram. If the DuoNeb helped to the patient symptomatically, an inhaler can be prescribed for home as well. Patient is well-appearing, nontoxic. Afebrile. This document was made in part using voice recognition software. While efforts are made to proofread this document, sound alike and grammatical errors may occur. Departure - Departure Clinical Impression: Dyspnea Qualifiers: Dyspnea type: unspecified Qualified Code(s): R06.00 - Dyspnea, unspecified Condition: Stable
[2021-02-28 16:53] LABS: BASOPHILS % (AUTO) 0.5 %; EOSINOPHILS # (AUTO) 0.2 10^3/uL (0.0-0.7); EOSINOPHILS % (AUTO) 2.6 %; HCT - HEMATOCRIT 40.8 % (37.0-47.0); HGB - HEMOGLOBIN 13.4 g/dL (12.0-16.0); LYMPHOCYTES # (AUTO) 1.9 10^3/uL (1.5-3.5); LYMPHOCYTES % (AUTO) 25.1 %; MEAN CORPUSCULAR HEMOGLOBIN 30.9 pg (27.0-31.0); MEAN CORPUSCULAR HGB CONC 32.8 g/dL (32.0-36.0); MEAN PLATELET VOLUME 9.6 fL (7.9-10.8); MONOCYTES # (AUTO) 0.7 10^3/uL (0.0-1.0); MONOCYTES % (AUTO) 8.9 %; NEUTROPHILS # (AUTO) 4.7 10^3/uL (1.5-6.6); NEUTROPHILS % (AUTO) 62.4 %; PLT - PLATELET COUNT 217 10^3/uL (130-450); RED BLOOD COUNT 4.34 10^6/uL (4.20-5.40); RED CELL DISTRIBUTION WIDTH 13.9 % (12.0-15.0); WHITE BLOOD COUNT 7.6 x10^3/uL (4.8-10.8)
[2021-02-28 17:16] LABS: ALBUMIN 4.4 g/dL (3.2-5.5); ALBUMIN/GLOBULIN RATIO 1.5 (1.0-2.2); BILIRUBIN,TOTAL 0.3 mg/dL (0.2-1.0); CALCIUM 9.5 mg/dL (8.5-10.3); CREATININE 0.8 mg/dL (0.4-1.0); POTASSIUM 4.1 mmol/L (3.5-5.0); TOTAL PROTEIN 7.4 g/dL (6.7-8.2)
[2021-02-28] MEDS ORDERED: IPRATROPIUM/ALBUTEROL 3 ML NEB INH STA (17:43)
[2021-02-28] MEDS ORDERED: IOVERSOL 320 100 ML VIAL IVP ONE (17:56)
--- NOTE | 2021-02-28 18:17 | CT Report ---
PROCEDURE: ANGIO CHEST W/WO INDICATIONS: dyspnea s/p surgery CONTRAST: IV CONTRAST: Optiray 320 ml: 80 PO CONTRAST: *NO PO CONTRAST TECHNIQUE: After the administration of intravenous contrast, 2 mm thick sections acquired from the pulmonary api akhil to the posterior costophrenic angles. 3-dimensional maximum intensity projection (MIP) coronal a nd sagittal reformats were then acquired through the thorax. For radiation dose reduction, the follow ing was used: automated exposure control, adjustment of mA and/or kV according to patient size. COMPARISON: Correlation is made with the accompanying chest radiograph, 02/28/2021. Comparison is mad e to the prior chest CT, 04/06/2018 FINDINGS: Image quality: Excellent. Pulmonary arteries: Pulmonary arteries are normal in size, and demonstrate no intraluminal filling d efects to suggest central pulmonary embolism. Lungs and pleura: Postoperative change of the right lower lung can be seen, with apparent mesh place ment along the right posterior lateral pleural surface. Scarring changes seen involving the right low er lobe. No focal infiltrates are seen. No pleural effusions or pneumothorax. Central and peripher al airways are patent. Mediastinum: Heart size is at the upper limits of normal, without pericardial effusion. No mediasti nal or hilar adenopathy. Thoracic aorta is normal in caliber and enhancement. Esophagus is normal i n caliber.There is a small hiatal hernia. Bones and chest wall: Portions of right posterior lateral ribs can be seen removed inferiorly. No braden spicious bony lesions. Age-appropriate degenerative changes are seen. No axillary or supraclavicul ar adenopathy. The thyroid is normal in size and there are no incidental findings. Abdomen: Cholecystectomy clips are seen. Visualized upper abdominal solid organs appear normal in the early arterial phase of enhancement. IMPRESSION: Negative for pulmonary embolus. Stable postoperative change of the right posterior lateral chest inferiorly, with removal of several ribs and placement of mesh material. Incidental note is made of: Small hiatal hernia Cholecystectomy Reviewed by: Adrian Romeo MD on 02/28/2021 5:16 PM [email or web address] Approved by: Adrian Romeo MD on 02/28/2021 5:16 PM AKDT Station ID: [id number]
[2021-02-28 18:59] VITALS: BP 194/80
--- NOTE | 2021-02-28 19:04 | ED Physician Documentation ---
ED Addendum - Addendum Addendum: 02/28/21 18:56 70-year-old female who has had a procedure on her vocal cords for vocal cord paralysis has developed some exertional dyspnea following this procedure that was not present previously and did not occur immediately. She is complaining of some phlegm production that is clear and feels that she is clearing her throat more frequently than usual but has a normal voice now. She is very pleased with the result of the procedure as far as her voice but now she is experiencing some dyspnea. She has been evaluated by her primary care doctor chest x-rays have been done there does not appear to be an issue with the lungs themselves. Today in the emergency department we have done a detailed examination of the lungs including a pulmonary angiogram which does not demonstrate abnormality to the lungs or evidence of pulmonary embolism. We did discover she has some unusual m esh in the chest wall on the right side from prior rib fractures about 5 years ago. The patient did not feel that she had much benefit from the use of the nebulizer treatment in the emergency department. My examination of the patient's lungs following treatment showed some high-pitched wheeze that was symmetric throughout her lungs and consistent with transmitted upper airway sound. My concern is for some decreased airway opening at the vocal cords but without evidence of laryngeal spasm. I offered the patient a trial of dexamethasone as a single dose and asked the patient to follow-up with her primary care doctor specifically if she has marked improvement in her dyspnea this evening. I have also indicated the patient that this may be something that is not easily modifiable. She has had this dyspnea for weeks and I am not concerned about an acute event or collapse. 02/28/21 19:07
[2021-02-28] MEDS ORDERED: DEXAMETHASONE 10 MG/ML VIAL IVP STA (19:05)
== END 2021-02-28 19:20 | disposition home or self-care (01) ==
LOC: ED 16:14
DX: R06.00 Dyspnea, unspecified (principal); I51.7 Cardiomegaly
CPT/HCPCS: 36415; 71046; 71275; 80053; 83690; 83880; 84484; 85025; 93005; 94640; 96374; 99284; Q9967

== ENCOUNTER 2021-06-18 08:34 | Outpatient (CLI) | payer MEDICARE, OTHER ==
[2021-06-18 13:04] LABS: ALBUMIN 4.7 g/dL (3.2-5.5); ALBUMIN/GLOBULIN RATIO 1.5 (1.0-2.2); ALKALINE PHOSPHATASE 56 IU/L (42-121); ALT ALANINE AMINOTRANSFERASE 16 IU/L (10-60); AST ASPARTATE AMINOTRANSFERASE 22 IU/L (10-42); BILIRUBIN,TOTAL 0.9 mg/dL (0.2-1.0); BUN - BLOOD UREA NITROGEN 21 mg/dL (6-20); CALCIUM 10.3 mg/dL (8.5-10.3); CARBON DIOXIDE - CO2 32 mmol/L (21-32); CHLORIDE 101 mmol/L (101-111); CHOL/HDL RATIO 2.6 (<4.4); CHOLESTEROL 196 mg/dL; GFR - MDRD 55 (>89); GLUCOSE 98 mg/dL (70-100); HDL CHOLESTEROL 74 mg/dL; LDL CHOLESTEROL,CALCULATED 101 mg/dL; LDL/HDL RATIO 1.4 (<4.4); POTASSIUM 4.2 mmol/L (3.5-5.0); SODIUM 142 mmol/L (135-145); TOTAL PROTEIN 7.8 g/dL (6.7-8.2); TRIGLYCERIDES 103 mg/dL; VLDL CHOLESTEROL 21 mg/dL
[2021-06-18 13:10] LABS: THYROID STIMULATING HORMONE 8.55 uIU/mL (0.34-5.60)
[2021-06-18 13:42] LABS: FREE T4 (FREE THYROXINE) 1.17 ng/dL (0.58-1.64)
== END 2021-06-18 08:35 | disposition home or self-care (01) ==
LOC: LAB.N 08:34
PROVIDERS: ATTEND Physician Assistant Medical
DX: E78.5 Hyperlipidemia, unspecified (principal); E03.9 Hypothyroidism, unspecified
CPT/HCPCS: 36415; 80053; 80061; 83721; 84439; 84443

== ENCOUNTER 2021-07-05 10:28 | Outpatient (CLI) | payer MEDICARE, OTHER ==
--- NOTE | 2021-07-06 10:24 | Mammography Report ---
BILATERAL DIGITAL SCREENING MAMMOGRAM 3D/2D: 07/05/2021 CLINICAL: Routine screening. Comparison is made to exams dated: 07/02/2020 mammogram, 06/06/2019 mammogram, 04/07/2017 mammogram, mammogram, 03/10/2016 mammogram, and 02/17/2015 mammogram - [facility]. There are scattered fibroglandular elements in both breasts. No significant masses, calcifications, or other findings are seen in either breast. There has been no significant interval change. IMPRESSION: NEGATIVE There is no mammographic evidence of malignancy. A 1 year screening mammogram is recommended. This exam was interpreted at Station ID: [id number]. NOTE: For mammograms, a report in lay terms will be sent to the patient. Approximately 15% of breast malignancies will not be visualized mammographically. In the management of a palpable breast mass, a negative mammogram must not discourage biopsy of a clinically suspicious lesion. Electronically Signed By: Justin Pitts M.D., jr/sharad:07/05/2021 11:12:44 ACR BI-RADS Category 1: Negative 3341F PARENCHYMAL PATTERN: (A) - The breast(s) demonstrate(s) scattered fibroglandular densities. BI-RADS CATEGORY: (1) - 1 RECOMMENDATION: (ANNUAL) - Recommend routine annual screening mammography. [id number] 1 year screening LATERALITY: (B)
== END 2021-07-05 10:29 | disposition home or self-care (01) ==
LOC: DI.N 10:28
DX: Z12.31 Encounter for screening mammogram for malignant neoplasm of breast (principal)

== ENCOUNTER 2021-08-25 08:00 | Outpatient (CLI) | payer MEDICARE, OTHER ==
[2021-08-25 14:24] LABS: THYROID STIMULATING HORMONE 3.21 uIU/mL (0.34-5.60)
== END 2021-08-25 23:59 ==
LOC: LAB.WCP 08:00
PROVIDERS: ATTEND Physician Assistant Medical
DX: E03.9 Hypothyroidism, unspecified (principal)
CPT/HCPCS: 36415; 84443

== ENCOUNTER 2022-02-16 08:35 | Outpatient (CLI) | payer MEDICARE, OTHER ==
[2022-02-16 12:11] LABS: THYROID STIMULATING HORMONE 3.77 uIU/mL (0.34-5.60)
[2022-02-16 12:13] LABS: ALBUMIN 4.1 g/dL (3.2-5.5); ALBUMIN/GLOBULIN RATIO 1.3 (1.0-2.2); ALKALINE PHOSPHATASE 51 IU/L (42-121); ALT ALANINE AMINOTRANSFERASE 14 IU/L (10-60); AST ASPARTATE AMINOTRANSFERASE 20 IU/L (10-42); BILIRUBIN,TOTAL 0.7 mg/dL (0.2-1.0); BUN - BLOOD UREA NITROGEN 26 mg/dL (6-20); CALCIUM 9.5 mg/dL (8.5-10.3); CARBON DIOXIDE - CO2 29 mmol/L (21-32); CHLORIDE 105 mmol/L (101-111); CHOL/HDL RATIO 2.8 (<4.4); CHOLESTEROL 188 mg/dL; CREATININE 1.1 mg/dL (0.4-1.0); GFR - MDRD 49 (>89); GLUCOSE 100 mg/dL (70-100); HDL CHOLESTEROL 67 mg/dL; LDL CHOLESTEROL,CALCULATED 99 mg/dL; LDL/HDL RATIO 1.5 (<4.4); POTASSIUM 4.5 mmol/L (3.5-5.0); SODIUM 142 mmol/L (135-145); TOTAL PROTEIN 7.2 g/dL (6.7-8.2); TRIGLYCERIDES 111 mg/dL; VLDL CHOLESTEROL 22 mg/dL
== END 2022-02-16 08:36 | disposition home or self-care (01) ==
LOC: LAB.N 08:35
PROVIDERS: ATTEND Physician Assistant Medical
DX: E78.5 Hyperlipidemia, unspecified (principal); E03.9 Hypothyroidism, unspecified
CPT/HCPCS: 36415; 80053; 80061; 83721; 84443

== ENCOUNTER 2022-03-29 13:43 | Outpatient (CLI) | payer MEDICARE, OTHER ==
--- NOTE | 2022-03-29 15:10 | XRAY Report ---
PROCEDURE: Knee 3 View LT INDICATIONS: OSTEOARTHRITIS, BILATERAL KNEES TECHNIQUE: 3 views of the left knee(s) were acquired. COMPARISON: None. FINDINGS: Bones: No fractures or dislocations. No suspicious bony lesions. There is a right medial femorotib ial compartment narrowing and small medial compartment osteophytes. Soft tissues: There is a small joint effusion. No suspicious soft tissue calcifications. IMPRESSION: Mild degenerative change and small joint effusion area Reviewed by: Joanna Feliciano MD on 03/29/2022 3:09 PM PDT Approved by: Joanna Feliciano MD on 03/29/2022 3:09 PM PDT Station ID: [id number]
== END 2022-03-29 13:44 | disposition home or self-care (01) ==
LOC: DI.N 13:43
PROVIDERS: ATTEND Physician Assistant Medical
DX: M17.0 Bilateral primary osteoarthritis of knee (principal); M25.462 Effusion, left knee

== ENCOUNTER 2022-04-16 08:00 | Outpatient (CLI) | payer MEDICARE, OTHER | END 2022-04-16 23:59 | disposition home or self-care (01) | LOC: LAB.N 08:00 | PROVIDERS: ATTEND Physician Assistant | DX: R30.0 Dysuria (principal) | CPT/HCPCS: 87086 ==

== ENCOUNTER 2022-05-25 10:06 | Outpatient (CLI) | payer MEDICARE, OTHER ==
[2022-05-25 14:00] LABS: CALCIUM 9.4 mg/dL (8.5-10.3); CREATININE 1.1 mg/dL (0.4-1.0); POTASSIUM 3.9 mmol/L (3.5-5.0)
== END 2022-05-25 10:07 | disposition home or self-care (01) ==
LOC: LAB.N 10:06
PROVIDERS: ATTEND Physician Assistant Medical
DX: N18.9 Chronic kidney disease, unspecified (principal)
CPT/HCPCS: 36415; 80048

== ENCOUNTER 2022-06-14 14:54 | Outpatient (CLI) | payer MEDICARE, OTHER ==
--- NOTE | 2022-06-14 23:50 | Ultrasound Report ---
PROCEDURE: Retroperitoneal INDICATIONS: RENAL MASS TECHNIQUE: Real-time scanning was performed of the retroperitoneal organs, with image documentation. COMPARISON: CT angiogram of chest dated 02/28/2021. FINDINGS: Kidneys: Kidneys are normal in size. Right kidney measures 9.4 cm long; left kidney measures 9.4 cm long. Right renal cortical thickness is 1.3 cm; left renal cortical thickness is 1.4 cm. No solid masses, hydronephrosis, or nephrolithiasis. 8 x 9 x 8 mm simple cyst is seen in midpole of right kid viki. 1.6 x 1.2 x 1.3 cm simple cyst is noted in lower pole of left kidney. Bladder: Pre-void bladder volume is 502.4 mL. Post-void residual is 22.5 mL. Pre-void images demon strate no intraluminal masses or stones. On pre-void images, bilateral ureteral jets are noted with color Doppler interrogation. (Of note, ureteral jets may not be detectable in up to 25% of cases due to insufficient differences in specific gravity between ureteral and bladder urine). Miscellaneous: No free abdominal fluid. IMPRESSION: Simple cysts seen in bilateral kidneys as above. No solid-appearing renal lesion. No finding to accou nt for previous CT angiogram of chest finding. Normal-appearing urinary bladder with small amount of post void residual. Reviewed by: Jose Hunter MD on 06/14/2022 11:49 PM PDT Approved by: Jose Hunter MD on 06/14/2022 11:49 PM PDT Station ID: [id number]
== END 2022-06-14 14:55 | disposition home or self-care (01) ==
LOC: DI 14:54
PROVIDERS: ATTEND Physician Assistant Medical
DX: N28.89 Other specified disorders of kidney and ureter (principal); N28.1 Cyst of kidney, acquired

== ENCOUNTER 2022-06-21 09:21 | Outpatient (CLI) | payer MEDICARE, OTHER ==
--- NOTE | 2022-06-22 10:15 | Mammography Report ---
BILATERAL DIGITAL SCREENING MAMMOGRAM 3D/2D: 06/21/2022 CLINICAL: Routine screening. Comparison is made to exams dated: 07/05/2021 mammogram, 07/02/2020 mammogram, 06/06/2019 mammogram, 04/19/2018 mammogram, 04/07/2017 mammogram, and 03/10/2016 mammogram - [facility]. There are scattered areas of fibroglandular density in both breasts (category b / 25%-50% glandular t issue). No significant masses, calcifications, or other findings are seen in either breast. There has been no significant interval change. IMPRESSION: NEGATIVE There is no mammographic evidence of malignancy. A 1 year screening mammogram is recommended. Based on the Tyrer Cuzick model (a risk assessment model) the patients lifetime risk is 5.5% and her 10 year risk is 3.8%. According to the ACR, ACS, and NCCN guidelines, an annual breast MRI exam yina g with mammogram is recommended if the patients lifetime risk is 20% or greater. This exam was interpreted at Station ID: [id number]. NOTE: For mammograms, a report in lay terms will be sent to the patient. Approximately 15% of breast malignancies will not be visualized mammographically. In the management of a palpable breast mass, a negative mammogram must not discourage biopsy of a clinically suspicious lesion. Electronically Signed By: Jimmy mims/sharad:06/21/2022 17:31:37 ACR BI-RADS Category 1: Negative 3341F PARENCHYMAL PATTERN: (A) - The breast(s) demonstrate(s) scattered fibroglandular densities. BI-RADS CATEGORY: (1) - 1 RECOMMENDATION: (ANNUAL) - Recommend routine annual screening mammography. [id number] 1 year screening LATERALITY: (B)
== END 2022-06-21 09:22 | disposition home or self-care (01) ==
LOC: DI.N 09:21
DX: Z12.31 Encounter for screening mammogram for malignant neoplasm of breast (principal)

== ENCOUNTER 2022-07-21 12:25 | Outpatient (CLI) | payer MEDICARE, OTHER ==
--- NOTE | 2022-07-21 17:38 | XRAY Report ---
PROCEDURE: Chest 2 View X-Ray INDICATIONS: PNEUMONIA TECHNIQUE: 2 view chest. COMPARISON: Chest x-ray, 02/28/2010 21. FINDINGS: Lungs and pleural: Right hemidiaphragmatic elevation. Right basilar opacities most likely scars and a telectasis. Mediastinum: Heart size is normal. Mediastinal contours are within normal limits. Bones and chest wall. Grossly normal. Cholecystectomy clips noted in the right upper quadrant. IMPRESSION: 1. No acute cardiopulmonary disease. 2. Right hemidiaphragm elevation and right basilar scars and atelectasis. Reviewed by: Genaro Rodríguez MD on 07/21/2022 5:37 PM PDT Approved by: Genaro Rodríguez MD on 07/21/2022 5:37 PM PDT Station ID: [id number]
== END 2022-07-21 12:26 | disposition home or self-care (01) ==
LOC: DI 12:25
PROVIDERS: ATTEND Physician Assistant Medical
DX: J18.9 Pneumonia, unspecified organism (principal); J98.11 Atelectasis

== ENCOUNTER 2023-03-30 09:36 | Outpatient (CLI) | payer MEDICARE, OTHER ==
[2023-03-30 12:07] LABS: BASOPHILS % (AUTO) 0.5 %; EOSINOPHILS # (AUTO) 0.1 10^3/uL (0.0-0.7); EOSINOPHILS % (AUTO) 2.2 %; HCT - HEMATOCRIT 39.4 % (37.0-47.0); HGB - HEMOGLOBIN 12.7 g/dL (12.0-16.0); LYMPHOCYTES # (AUTO) 1.3 10^3/uL (1.5-3.5); LYMPHOCYTES % (AUTO) 22.4 %; MEAN CORPUSCULAR HGB CONC 32.2 g/dL (32.0-36.0); MEAN CORPUSCULAR VOLUME 92.9 fL (81.0-99.0); MEAN PLATELET VOLUME 9.9 fL (7.9-10.8); MONOCYTES # (AUTO) 0.5 10^3/uL (0.0-1.0); MONOCYTES % (AUTO) 8.9 %; NEUTROPHILS # (AUTO) 3.8 10^3/uL (1.5-6.6); NEUTROPHILS % (AUTO) 65.7 %; PLT - PLATELET COUNT 218 10^3/uL (130-450); RED BLOOD COUNT 4.24 10^6/uL (4.20-5.40); RED CELL DISTRIBUTION WIDTH 14.3 % (12.0-15.0); WHITE BLOOD COUNT 5.9 x10^3/uL (4.8-10.8)
[2023-03-30 12:35] LABS: ALBUMIN 4.3 g/dL (3.2-5.5); ALBUMIN/GLOBULIN RATIO 1.4 (1.0-2.2); ALKALINE PHOSPHATASE 49 IU/L (42-121); ALT ALANINE AMINOTRANSFERASE 20 IU/L (10-60); AST ASPARTATE AMINOTRANSFERASE 23 IU/L (10-42); BILIRUBIN,TOTAL 0.6 mg/dL (0.2-1.0); BUN - BLOOD UREA NITROGEN 27 mg/dL (6-20); CALCIUM 9.3 mg/dL (8.5-10.3); CARBON DIOXIDE - CO2 30 mmol/L (21-32); CHLORIDE 106 mmol/L (101-111); CHOLESTEROL 201 mg/dL; CREATININE 1.1 mg/dL (0.4-1.0); GFR - MDRD 49 (>89); GLUCOSE 99 mg/dL (70-100); HDL CHOLESTEROL 68 mg/dL; LDL CHOLESTEROL,CALCULATED 112 mg/dL; LDL/HDL RATIO 1.6 (<4.4); POTASSIUM 4.5 mmol/L (3.5-5.0); SODIUM 141 mmol/L (135-145); TOTAL PROTEIN 7.3 g/dL (6.7-8.2); TRIGLYCERIDES 106 mg/dL; VLDL CHOLESTEROL 21 mg/dL
[2023-03-30 12:48] LABS: THYROID STIMULATING HORMONE 2.3 uIU/mL (0.34-5.60)
== END 2023-03-30 09:37 | disposition home or self-care (01) ==
LOC: LAB.N 09:36
PROVIDERS: ATTEND Family Medicine
DX: E78.5 Hyperlipidemia, unspecified (principal); E03.9 Hypothyroidism, unspecified; J30.9 Allergic rhinitis, unspecified
CPT/HCPCS: 36415; 80053; 80061; 83721; 84443; 85025

== ENCOUNTER 2023-04-17 08:38 | Outpatient (CLI) | payer MEDICARE, OTHER ==
--- NOTE | 2023-04-17 12:11 | CT Report ---
PROCEDURE: CHEST WO INDICATIONS: RIGHT SIDE RIB PAIN TECHNIQUE: Noncontrast 1mm axial images were acquired from the pulmonary apices to the posterior costophrenic an gles. Axial 5 mm soft tissue kernel reconstructions were performed as well as 8 mm axial MIP and cor onal and sagittal 5 mm reformations. For radiation dose reduction, the following was used: automate d exposure control, adjustment of mA and/or kV according to patient size. COMPARISON: CT angiogram of the chest dated 02/28/2021, CT chest without contrast dated July 202016 FINDINGS: Image quality: Excellent. Lungs and pleura: No consolidation. No pleural effusions. No pneumothorax. Chronic elevation of righ t hemidiaphragm. Chronic right basilar scarring. No suspicious pulmonary nodules which require follow up. Mediastinum: Heart size is normal. No pericardial effusion. Mild coronary artery calcifications. No l arge vessel abnormality. Descending thoracic aorta is ectatic, but not frankly aneurysmal, measuring 3.9 cm. No mediastinal adenopathy by size criteria. Chest wall and lower neck: Again noted is unchanged appearance of mesh repair of a left chest wall hernia. The appearance is non -significantly changed from the previous CT of 03/03/[address] from 10/27/2016. 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 There is chronic w idening of the distance between the right lateral eighth and ninth ribs. Thyroid is unremarkable. No axillary or supraclavicular adenopathy by size. Bones: Remote resection of multiple Upper Abdomen: Unremarkable. IMPRESSION: 1. Stable appearance of right hemithorax compared to the initial study reviewed, dated 2016. There is chronic elevation of the right hemidiaphragm. There has been remote mesh repair of the posterior lat eral right chest wall. 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 The appearance of this is not significantl y changed. 2. No acute pulmonary process. Reviewed by: Jaime Cooper MD on 04/17/2023 12:10 PM PDT Approved by: Jaime Cooper MD on 04/17/2023 12:10 PM PDT Station ID: [id number]
== END 2023-04-17 08:39 | disposition home or self-care (01) ==
LOC: DI 08:38
PROVIDERS: ATTEND Physician Assistant Medical
DX: R07.81 Pleurodynia (principal); R93.5 Abnormal findings on diagnostic imaging of other abdominal regions, including retroperitoneum

== ENCOUNTER 2023-08-11 08:00 | Outpatient (CLI) | payer MEDICARE, OTHER | END 2023-08-11 08:15 | disposition home or self-care (01) | LOC: LAB.N 08:00 | PROVIDERS: ATTEND Family Medicine | DX: R19.7 Diarrhea, unspecified (principal) | CPT/HCPCS: 87045; 87046; 87329; 87427; 87493 ==

== ENCOUNTER 2023-08-18 08:06 | Outpatient (CLI) | payer MEDICARE, OTHER ==
[2023-08-18 12:25] LABS: BASOPHILS % (AUTO) 0.3 %; EOSINOPHILS # (AUTO) 0.1 10^3/uL (0.0-0.7); HCT - HEMATOCRIT 37.5 % (37.0-47.0); HGB - HEMOGLOBIN 12.1 g/dL (12.0-16.0); LYMPHOCYTES # (AUTO) 0.9 10^3/uL (1.5-3.5); LYMPHOCYTES % (AUTO) 13.3 %; MEAN CORPUSCULAR HEMOGLOBIN 30.3 pg (27.0-31.0); MEAN CORPUSCULAR HGB CONC 32.3 g/dL (32.0-36.0); MEAN CORPUSCULAR VOLUME 93.8 fL (81.0-99.0); MEAN PLATELET VOLUME 10.4 fL (7.9-10.8); MONOCYTES # (AUTO) 0.4 10^3/uL (0.0-1.0); MONOCYTES % (AUTO) 6.7 %; NEUTROPHILS % (AUTO) 77.4 %; PLT - PLATELET COUNT 214 10^3/uL (130-450); RED CELL DISTRIBUTION WIDTH 14.1 % (12.0-15.0); WHITE BLOOD COUNT 6.5 x10^3/uL (4.8-10.8)
[2023-08-18 12:52] LABS: ALBUMIN 4.2 g/dL (3.2-5.5); ALBUMIN/GLOBULIN RATIO 1.8 (1.0-2.2); ALKALINE PHOSPHATASE 52 IU/L (42-121); ALT ALANINE AMINOTRANSFERASE 15 IU/L (10-60); AST ASPARTATE AMINOTRANSFERASE 19 IU/L (10-42); BILIRUBIN,TOTAL 0.4 mg/dL (0.2-1.0); BUN - BLOOD UREA NITROGEN 14 mg/dL (6-20); CALCIUM 9.5 mg/dL (8.5-10.3); CARBON DIOXIDE - CO2 28 mmol/L (21-32); CHLORIDE 107 mmol/L (101-111); CHOL/HDL RATIO 2.7 (<4.4); CHOLESTEROL 138 mg/dL; CREATININE 0.9 mg/dL (0.6-1.3); GFR - MDRD 62 (>89); GLUCOSE 103 mg/dL (74-104); HDL CHOLESTEROL 51 mg/dL; LDL CHOLESTEROL,CALCULATED 69 mg/dL; LDL/HDL RATIO 1.4 (<4.4); POTASSIUM 3.3 mmol/L (3.5-4.5); SODIUM 141 mmol/L (135-145); TOTAL PROTEIN 6.6 g/dL (6.4-8.9); TRIGLYCERIDES 89 mg/dL (48-352); VLDL CHOLESTEROL 18 mg/dL
[2023-08-18 13:08] LABS: THYROID STIMULATING HORMONE 1.26 uIU/mL (0.34-5.60)
[2023-08-30 06:10] LABS: OVA + PARASITE EXAM Final report (.)
== END 2023-08-18 08:07 | disposition home or self-care (01) ==
LOC: LAB.N 08:06
PROVIDERS: ATTEND Family Medicine
DX: I10 Essential (primary) hypertension (principal); R13.10 Dysphagia, unspecified; R19.7 Diarrhea, unspecified; K21.9 Gastro-esophageal reflux disease without esophagitis; E78.5 Hyperlipidemia, unspecified; E03.9 Hypothyroidism, unspecified
CPT/HCPCS: 36415; 80053; 80061; 81599; 82653; 82784; 83721; 83993; 84436; 84439; 84443; 85025; 86231; 86258; 86364; 87045; 87046; 87177; 87209; 87427

== ENCOUNTER 2023-08-19 08:00 | Outpatient (CLI) | payer MEDICARE, OTHER ==
[2023-08-23 14:08] LABS: FECAL FATS NEUTRAL Normal (.); FECAL FATS TOTAL Normal (.)
== END 2023-08-19 23:59 | disposition home or self-care (01) ==
LOC: LAB.N 08:00
PROVIDERS: ATTEND Internal Medicine Gastroenterology
DX: R13.10 Dysphagia, unspecified (principal); R19.7 Diarrhea, unspecified; K21.9 Gastro-esophageal reflux disease without esophagitis
CPT/HCPCS: 81599; 82705; 82710; 83630

== ENCOUNTER 2023-09-07 10:16 | Emergency (ER) | payer MEDICARE, OTHER ==
[2023-09-07 11:00] LABS: INR 1.1 (0.8-1.2); PT - PROTHROMBIN TIME 12.4 secs (9.9-12.6)
[2023-09-07 11:01] LABS: BASOPHILS % (AUTO) 0.3 %; EOSINOPHILS # (AUTO) 0.1 10^3/uL (0.0-0.7); EOSINOPHILS % (AUTO) 2.1 %; HCT - HEMATOCRIT 38.5 % (37.0-47.0); HGB - HEMOGLOBIN 12.3 g/dL (12.0-16.0); LYMPHOCYTES # (AUTO) 1.1 10^3/uL (1.5-3.5); LYMPHOCYTES % (AUTO) 18.6 %; MEAN CORPUSCULAR HEMOGLOBIN 29.6 pg (27.0-31.0); MEAN CORPUSCULAR HGB CONC 31.9 g/dL (32.0-36.0); MEAN CORPUSCULAR VOLUME 92.5 fL (81.0-99.0); MEAN PLATELET VOLUME 9.3 fL (7.9-10.8); MONOCYTES # (AUTO) 0.6 10^3/uL (0.0-1.0); MONOCYTES % (AUTO) 9.2 %; NEUTROPHILS # (AUTO) 4.2 10^3/uL (1.5-6.6); NEUTROPHILS % (AUTO) 69.6 %; PLT - PLATELET COUNT 215 10^3/uL (130-450); RED BLOOD COUNT 4.16 10^6/uL (4.20-5.40); RED CELL DISTRIBUTION WIDTH 13.7 % (12.0-15.0); WHITE BLOOD COUNT 6.1 x10^3/uL (4.8-10.8)
[2023-09-07 11:09] LABS: ALBUMIN 4.1 g/dL (3.2-5.5); ALBUMIN/GLOBULIN RATIO 1.6 (1.0-2.2); BILIRUBIN,TOTAL 0.5 mg/dL (0.2-1.0); CALCIUM 9.3 mg/dL (8.5-10.3); POTASSIUM 3.3 mmol/L (3.5-4.5); TOTAL PROTEIN 6.7 g/dL (6.4-8.9)
--- NOTE | 2023-09-07 12:14 | ED Physician Documentation ---
History of Present Illness - Stated complaint Stated Complaint: POST SURG COMPLICATIONS - Chief complaint Chief Complaint: Abd Pain - History obtained from History obtained from: Patient - History of Present Illness Timing: Today Pain level max: 0 Pain level now: 0 - Additonal information Additional information: 72-year-old female presents to the emergency department complaining of bright red blood per rectum today x 1. She had a colonoscopy yesterday. No abdominal pain. No fevers. No chills. She had a EGD yesterday as well with esophageal dilation. No chest pain. No upper abdominal pain. She is not on blood thinners. Does not feel lightheaded, dizzy. No shortness of breath. She is otherwise asymptomatic. She states that her GI physicians nurse recommended that she come here for evaluation for the bleeding. Review of Systems Constitutional: denies: Fever, Chills GI: denies: Abdominal Pain, Vomiting, Diarrhea, Hematemesis : denies: Dysuria, Frequency, Hesitancy Skin: denies: Rash Musculoskeletal: denies: Neck pain, Back pain Neurologic: denies: Headache PD PAST MEDICAL HISTORY - Past Medical History Past Medical History: Yes Cardiovascular: Hypertension, High cholesterol Endocrine/Autoimmune: HyPOthyroidism Psych: Anxiety - Past Surgical History Past Surgical History: Yes General: Colonoscopy, EGD - Present Medications Home Medications: Ambulatory Orders Medication Instructions Recorded Confirmed ALPRAZolam [Xanax] 0.5 mg PO ONCE PRN 06/25/16 09/07/23 Levothyroxine [Synthroid] 125 mcg PO QDAC 06/25/16 09/07/23 Losartan [Cozaar] 50 mg PO DAILY 06/25/16 09/07/23 Simvastatin 20 mg PO DAILY 06/25/16 09/07/23 Albuterol Sulfate [Proair 1 - 2 puffs INH Q4HR PRN 09/07/23 09/07/23 Digihaler] Cholecalciferol [Vitamin D3] 5,000 unit PO DAILY 09/07/23 09/07/23 Escitalopram Oxalate 20 mg PO DAILY 09/07/23 09/07/23 Fluticasone [Flonase] 1 sprays JESSICA DAILY 09/07/23 09/07/23 Multivitamin 1 each PO DAILY 09/07/23 09/07/23 Omeprazole Magnesium 20 mg PO DAILY 09/07/23 09/07/23 buPROPion [Wellbutrin Xl] 150 mg PO DAILY 09/07/23 09/07/23 traZODone [Desyrel] 50 mg PO HS 09/07/23 09/07/23 - Allergies Allergies/Adverse Reactions: Allergies Allergy/AdvReac Type Severity Reaction Status Date / Time Sulfa (Sulfonamide Allergy Unknown Verified 09/07/23 10:31 Antibiotics) - Social History Does the pt smoke?: No Smoking Status: Never smoker Does the pt drink ETOH?: No Does the pt have substance abuse?: No - Immunizations Immunizations are current?: Yes PD ED PE NORMAL - Vitals Vital signs reviewed: Yes - General General: Alert and oriented X 3, No acute distress - HEENT HEENT: PERRL, Moist mucous membranes - Neck Neck: Supple, no meningeal sign - Cardiac Cardiac: RRR, Strong equal pulses - Respiratory Respiratory: No respiratory distress, Clear bilaterally - Abdomen Abdomen: Normal bowel sounds, Soft, Non tender, Non distended - Derm Derm: Warm and dry - Neuro Neuro: Alert and oriented X 3 - Psych Psych: Normal mood, Normal affect Results - Vitals Vitals: Vital Signs - 24 hr 09/07/23 10:26 Temperature 37.4 C Heart Rate 63 Respiratory 18 Rate Blood Pressure 164/81 H O2 Saturation 95 Oxygen O2 Source Room air - Labs Labs: Laboratory Tests 09/07/23 09/07/23 09/07/23 10:46 10:46 10:46 WBC 6.1 RBC 4.16 L Hgb 12.3 Hct 38.5 MCV 92.5 MCH 29.6 MCHC 31.9 L RDW 13.7 Plt Count 215 MPV 9.3 Neut # (Auto) 4.2 Lymph # (Auto) 1.1 L Carroll # (Auto) 0.6 Eos # (Auto) 0.1 Baso # (Auto) 0.0 Absolute Nucleated RBC 0.00 Nucleated RBC % 0.0 PT 12.4 INR 1.1 Sodium Potassium Chloride Carbon Dioxide Anion Gap BUN Creatinine Estimated GFR (MDRD) Glucose Calcium Total Bilirubin AST ALT Alkaline Phosphatase Total Protein Albumin Globulin Albumin/Globulin Ratio Lipase Blood Type O POSITIVE Blood Type Recheck Antibody Screen NEGATIVE 09/07/23 09/07/23 10:46 11:36 WBC RBC Hgb Hct MCV MCH MCHC RDW Plt Count MPV Neut # (Auto) Lymph # (Auto) Carroll # (Auto) Eos # (Auto) Baso # (Auto) Absolute Nucleated RBC Nucleated RBC % PT INR Sodium 142 Potassium 3.3 L Chloride 106 Carbon Dioxide 30 Anion Gap 6.0 BUN 11 Creatinine 1.0 Estimated GFR (MDRD) 55 L Glucose 108 H Calcium 9.3 Total Bilirubin 0.5 AST 18 ALT 12 Alkaline Phosphatase 61 Total Protein 6.7 Albumin 4.1 Globulin 2.6 Albumin/Globulin Ratio 1.6 Lipase 62 Blood Type Blood Type Recheck O POSITIVE Antibody Screen PD Medical Decision Making - ED course Complexity details: considered differential, d/w patient ED course: 72-year-old female with normal hemoglobin hematocrit has a small amount of bright red blood per rectum today after her colonoscopy yesterday. Likely secondary to one of the biopsy sites. She is not having any active bleeding currently. Her abdomen is soft, nontender nondistended. She is not lightheaded, dizzy. Vital signs are normal. She is not on blood thinners. No need for emergent imaging at this time. No evidence of perforation. No emergency medical condition at this time. Patient counseled regarding signs and symptoms for which I believe and urgent re-evaluation would be necessary. Patient with good understanding of and agreement to plan and is comfortable going home at this time This document was made in part using voice recognition software. While efforts are made to proofread this document, sound alike and grammatical errors may occur. Departure - Departure Disposition: 01 Home, Self Care Clinical Impression: BRBPR (bright red blood per rectum) Condition: Good Instructions: ED Hematochezia Stable Follow-Up: Helen Trivedi PA-C [Primary Care Provider] - Comments: Your hemoglobin and hematocrit are normal today at 12 and 38. These are your blood counts. It is not uncommon to have some bleeding after a colonoscopy as the biopsy sites can bleed. Please return if you develop fevers, vomiting, i ncreasing abdominal pain or other new or worrisome symptoms. Please follow-up with your GI doctor for further care. Forms: PCP List
[2023-09-07 12:23] VITALS: BP 172/78; O2SAT 100
== END 2023-09-07 12:22 | disposition home or self-care (01) ==
LOC: ED 10:16
DX: K62.5 Hemorrhage of anus and rectum (principal); I10 Essential (primary) hypertension; E78.00 Pure hypercholesterolemia, unspecified; E03.9 Hypothyroidism, unspecified; Z79.899 Other long term (current) drug therapy
CPT/HCPCS: 36415; 80053; 83690; 85025; 85610; 86850; 86900; 86901; 99283

== ENCOUNTER 2023-11-08 08:15 | Outpatient (CLI) | payer MEDICARE, OTHER ==
--- NOTE | 2023-11-09 09:45 | Mammography Report ---
BILATERAL DIGITAL SCREENING MAMMOGRAM 3D/2D: 11/08/2023 CLINICAL: Routine screening. Comparison is made to exams dated: 06/21/2022 mammogram, 07/05/2021 mammogram, 07/02/2020 mammogram, 06/06/2019 mammogram, 04/19/2018 mammogram, and 04/07/2017 mammogram - [facility]. There are scattered areas of fibroglandular density in both breasts (category b / 25%-50% glandular t issue). No significant masses, calcifications, or other findings are seen in either breast. There has been no significant interval change. IMPRESSION: NEGATIVE There is no mammographic evidence of malignancy. A 1 year screening mammogram is recommended. Based on the Tyrer Cuzick model (a risk assessment model) the patient's lifetime risk is 4.9% and her 10 year risk is 4.0%. According to the ACR, ACS, and NCCN guidelines, an annual breast MRI exam yina g with mammogram is recommended if the patient's lifetime risk is 20% or greater. This exam was interpreted at Station ID: [id number]. NOTE: For mammograms, a report in lay terms will be sent to the patient. Approximately 15% of breast malignancies will not be visualized mammographically. In the management of a palpable breast mass, a negative mammogram must not discourage biopsy of a clinically suspicious lesion. Electronically Signed By: Joanna kee/sharad:11/08/2023 17:55:18 ACR BI-RADS Category 1: Negative 3341F PARENCHYMAL PATTERN: (A) - The breast(s) demonstrate(s) scattered fibroglandular densities. BI-RADS CATEGORY: (1) - 1 Mammogram [id number] 1 year screening LATERALITY: (B)
== END 2023-11-08 08:16 | disposition home or self-care (01) ==
LOC: DI.N 08:15
DX: Z12.31 Encounter for screening mammogram for malignant neoplasm of breast (principal); R92.323 Mammographic fibroglandular density, bilateral breasts

== ENCOUNTER 2024-02-02 08:00 | Outpatient (CLI) | payer MEDICARE, OTHER | END 2024-02-02 23:59 | disposition home or self-care (01) | LOC: LAB.R 08:00 | PROVIDERS: ATTEND Physician Assistant | DX: R19.7 Diarrhea, unspecified (principal) | CPT/HCPCS: 83993 ==

== ENCOUNTER 2024-03-08 13:43 | Outpatient (CLI) | payer MEDICARE, OTHER | END 2024-03-08 13:44 | disposition home or self-care (01) | LOC: LAB.N 13:43 | PROVIDERS: ATTEND Physician Assistant | DX: R19.7 Diarrhea, unspecified (principal) | CPT/HCPCS: 83993 ==

== ENCOUNTER 2024-04-15 10:34 | Outpatient (CLI) | payer MEDICARE, OTHER ==
[2024-04-15 13:01] LABS: ALBUMIN 4.5 g/dL (3.2-5.5); ALBUMIN/GLOBULIN RATIO 1.6 (1.0-2.2); ALKALINE PHOSPHATASE 73 IU/L (42-121); ALT ALANINE AMINOTRANSFERASE 12 IU/L (10-60); AST ASPARTATE AMINOTRANSFERASE 18 IU/L (10-42); BILIRUBIN,TOTAL 0.5 mg/dL (0.2-1.0); BUN - BLOOD UREA NITROGEN 14 mg/dL (6-20); CALCIUM 9.6 mg/dL (8.5-10.3); CARBON DIOXIDE - CO2 29 mmol/L (21-32); CHLORIDE 107 mmol/L (101-111); CHOL/HDL RATIO 3.1 (<4.4); CHOLESTEROL 186 mg/dL; GFR - MDRD 54 (>89); GLUCOSE 96 mg/dL (74-104); HDL CHOLESTEROL 60 mg/dL; LDL CHOLESTEROL,CALCULATED 104 mg/dL; LDL/HDL RATIO 1.7 (<4.4); POTASSIUM 3.5 mmol/L (3.5-4.5); SODIUM 142 mmol/L (135-145); TOTAL PROTEIN 7.3 g/dL (6.4-8.9); TRIGLYCERIDES 109 mg/dL; VLDL CHOLESTEROL 22 mg/dL
[2024-04-15 13:06] LABS: THYROID STIMULATING HORMONE 1.27 uIU/mL (0.34-5.60)
== END 2024-04-15 10:35 | disposition home or self-care (01) ==
LOC: LAB.N 10:34
PROVIDERS: ATTEND Physician Assistant Medical
DX: E78.5 Hyperlipidemia, unspecified (principal); E03.9 Hypothyroidism, unspecified
CPT/HCPCS: 36415; 80053; 80061; 83721; 84443

== ENCOUNTER 2024-04-19 12:44 | Outpatient (CLI) | payer MEDICARE, OTHER ==
--- NOTE | 2024-04-19 15:54 | XRAY Report ---
PROCEDURE: Ankle 3+V RT INDICATIONS: RIGHT ANKLE SPRAIN TECHNIQUE: 2 views of the ankle were acquired. COMPARISON: MRI right ankle without contrast 11/25/2019, right ankle x-ray 07/09/2014 FINDINGS: Diffuse osseous demineralization. No fracture or dislocation. The ankle mortise is preserved on the n onweightbearing view. No significant tibiotalar joint effusion. Mild tibiotalar and calcaneocuboid os teoarthritis. Plantar calcaneal enthesopathy. Vascular calcifications. Osteophyte formation at the inferior aspect of the fibula and lateral process of the talus, which can be seen with subfibular impingement pathology. IMPRESSION: No acute abnormality of the ankle. Mild tibiotalar and calcaneal cuboid osteoarthritis. Reviewed by: Dany Chan MD on 04/19/2024 3:53 PM PDT Approved by: Dany Chan MD on 04/19/2024 3:53 PM PDT Station ID: [id number]
== END 2024-04-19 12:45 | disposition home or self-care (01) ==
LOC: DI 12:44
PROVIDERS: ATTEND Family Medicine
DX: M19.071 Primary osteoarthritis, right ankle and foot (principal)

== ENCOUNTER 2024-05-22 07:33 | Outpatient (CLI) | payer MEDICARE, OTHER | END 2024-05-22 07:34 | disposition home or self-care (01) | LOC: LAB.R 07:33 | PROVIDERS: ATTEND Physician Assistant | DX: R19.7 Diarrhea, unspecified (principal) | CPT/HCPCS: 83993 ==